=== PATIENT | female | born 1995 | race African-American/Black ===

== ENCOUNTER → 2023-05-13 | Outpatient (CLI) | payer OTHER ==
[2023-05-13 20:03] LABS: Source, Urine Clean Catch
[2023-05-13 20:27] LABS: Appearance, Urine Hazy (Clear); Bilirubin, Urine Neg (Neg); Blood, Urine Neg (Neg); Color, Urine Yellow (P-Yellow); Glucose Qualitative, Urine Neg (Neg); Ketones, Urine Neg (Neg); Leukocyte Esterase, Urine Neg (Neg); Nitrite, Urine Neg (Neg); Protein, Urine 1+ (Neg); Specific Gravity, Urine 1.025 (1.003-1.022); Urobilinogen, Urine NORM (Normal)
[2023-05-13 20:33] LABS: Amorphous Light (0-Heavy); Bacteria Few /hpf; Mucus Mod (0-Heavy); Red Blood Cells, Urine Not Seen /hpf (0-2); Squamous Epithelial Cells Few /hpf (Few); White Blood Cells, Urine Not Seen /hpf (0-5)
[2023-05-22 11:24] LABS: HEPATITIS B SURFACE ANTIGEN Negative (Negative)
== END ==
LOC: LAB 16:10 → LAB SHORT 16:10
PROVIDERS: Family Medicine
DX: Z34.91 Encounter for supervision of normal pregnancy, unspecified, first trimester (principal)
CPT/HCPCS: 81001; 84443; 87086

== ENCOUNTER → 2023-12-01 | Outpatient (CLI) | payer OTHER | LOC: LAB 12:00 → LAB SHORT 12:00 | DX: Z33.1 Pregnant state, incidental (principal) | CPT/HCPCS: 87081; 87150 ==

== ENCOUNTER 2023-12-14 01:55 | Inpatient (IN) | payer OTHER ==
[2023-12-14] VITALS (11 sets, daily range): BP systolic 96–119; BP diastolic 51–75
[2023-12-14] MEDS ORDERED: Methylergonovine Maleate 0.2MG / ML 1ML Amp IM PRN (02:20)
[2023-12-14] MEDS ORDERED: OXYTOCIN/RINGER'S LACTATE 500 ML IV PRN (02:20)
[2023-12-14] MEDS ORDERED: Tranexamic Acid 100 ML IV SCH (02:20)
[2023-12-14] MEDS ORDERED: Misoprostol 200 MCG Tab XX PRN (02:20)
[2023-12-14] MEDS ORDERED: Carboprost Tromethamine 250 MCG/ML 1ML Amp IM PRN (02:20)
[2023-12-14] MEDS ORDERED: Oxytocin 10 Unit / ML Vial IM PRN (02:20)
[2023-12-14] MEDS ORDERED: Lactated Ringer's 1,000 ML IV PRN (02:20)
[2023-12-14] MEDS ORDERED: Misoprostol 200 MCG Tab PR PRN (02:20)
[2023-12-14] MEDS ORDERED: Acetaminophen 500 MG Tab PO PRN (02:25)
[2023-12-14] MEDS ORDERED: Ondansetron HCl 2 MG / ML 2ML Vial IV PRN (02:25)
[2023-12-14] MEDS ORDERED: Calcium Carbonate 500 MG Tab Chew PO PRN (02:25)
[2023-12-14] MEDS ORDERED: OxyCODONE 5 mg/Acetamin 325 mg TABLET PO PRN (03:15)
[2023-12-14] MEDS ORDERED: Benzocaine Topical Anesthetic Spray 60GM TOP PRN (03:15)
[2023-12-14] MEDS ORDERED: Docusate Sodium 100 MG Cap PO PRN (03:15)
[2023-12-14] MEDS ORDERED: Witch Hazel/Glycerin PADS TOP PRN (03:20)
[2023-12-14] MEDS ORDERED: Naproxen 500 MG Tab PO PRN (03:20)
[2023-12-14] MEDS ORDERED: Ondansetron 8 MG SoluTab MM PRN (03:20)
[2023-12-14] MEDS ORDERED: OxyCODONE HCL 5 MG TAB PO PRN (03:20)
[2023-12-14 05:56] LABS: BASOPHILS ABSOLUTE AUTO 0.04 K/mm3 (0.00-0.23); BASOPHILS PERCENT AUTO 0 % (0-2); EOSINOPHILS ABSOLUTE AUTO 0.03 K/mm3 (0.00-0.68); EOSINOPHILS PERCENT AUTO 0 % (0-6); Hematocrit 34.9 % (33.0-51.0); IMMATURE GRAN ABSOLUTE AUTO 0.06 K/mm3 (0.00-0.10); IMMATURE GRAN PERCENT AUTO 0 % (0-1); LYMPHOCYTES ABSOLUTE AUTO 1.51 K/mm3 (0.84-5.20); LYMPHOCYTES PERCENT AUTO 10 % (21-46); MONOCYTES ABSOLUTE AUTO 0.37 K/mm3 (0.16-1.47); MONOCYTES PERCENT AUTO 2 % (4-13); Mean Corpuscular HGB 31.6 pg (26.0-34.0); Mean Corpuscular HGB Conc 34.4 g/dL (31.5-36.5); Mean Corpuscular Volume 92 fL (80-100); Mean Platelet Volume 9.9 fL (9.1-12.4); NEUTROPHILS PERCENT AUTO 87 % (41-73); Platelet Count 195 K/mm3 (150-400); RDW Coefficient Variation 12.3 % (11.7-14.2); White Blood Cell Count 15.81 K/mm3 (4.00-11.30)
[2023-12-14] MEDS ORDERED: Bupivacaine 0.5% HCl 5 MG/ML 30MLVIAL INJ ONE (06:25)
[2023-12-14] MEDS ORDERED: Prenatal Vit/FE Fumarate/FA 1 Tab PO SCH (09:00)
[2023-12-15 04:13] VITALS: BP 112/64
[2023-12-15 09:10] VITALS: BP 110/69
[2023-12-15 10:21] VITALS: BP 114/61
== END 2023-12-15 10:55 | disposition home or self-care (01) | DRG 807 ==
LOC: OBS 01:55 → BC 01:56
PROVIDERS: ADMIT Family Medicine
PROC: 10E0XZZ Delivery of Products of Conception, External Approach (ICD-10-PCS; principal; 2023-12-14)
PROC: 0KQM0ZZ Repair Perineum Muscle, Open Approach (ICD-10-PCS; 2023-12-14)
DX: O62.3 Precipitate labor (principal); Z37.0 Single live birth; Z3A.39 39 weeks gestation of pregnancy; O70.1 Second degree perineal laceration during delivery; Z88.0 Allergy status to penicillin
CPT/HCPCS: 36415; 85025; 86850; 86900; 86901; A9270

== ENCOUNTER 2024-02-09 19:08 | Emergency (ER) | payer OTHER ==
[~2024-02-09] VITALS: Ht 167.6 cm; Wt 63.5 kg
[2024-02-09] MEDS ORDERED: Acetaminophen 325 MG TABLET PO ONE (21:45)
[2024-02-09] MEDS ORDERED: Diphth,Pertuss(Acell),Tet Vac 0.5 ML VIAL IM ONE (22:20)
[2024-02-09 22:31] VITALS: BP 122/70
== END 2024-02-09 22:31 | disposition home or self-care (01) ==
LOC: ER 19:08
DX: S61.211A Laceration without foreign body of left index finger without damage to nail, initial encounter (principal); W26.0XXA Contact with knife, initial encounter; Z88.0 Allergy status to penicillin
CPT/HCPCS: 64450; 90471; 90715; 99282-25; A9270